=== PATIENT | female | born 1985 | race African-American/Black ===

== ENCOUNTER 2017-10-01 23:12 | Emergency (ER) | payer OTHER ==
[2017-10-01 23:32] VITALS: BP 117/71; PULSE 78; TEMP 98.1; BMI 29.0
--- NOTE | 2017-10-04 11:06 | EKG ---
Test Reason : Blood Pressure : / mmHG Vent. Rate : 072 BPM Atrial Rate : 072 BPM P-R Int : 166 ms QRS Dur : 086 ms QT Int : 364 ms P-R-T Axes : 034 024 014 degrees QTc Int : 398 ms NORMAL SINUS RHYTHM NORMAL ECG NO PREVIOUS ECGS AVAILABLE Confirmed by BRISA BRANTLEY, ABDIEL ([id number]) on 10/04/2017 11:06:25 AM Referred By: Confirmed By:ABDIEL LEDEZMA MD
== END 2017-10-02 01:22 | disposition left against medical advice (07) ==
LOC: JER 23:12
DX: Z53.21 Procedure and treatment not carried out due to patient leaving prior to being seen by health care provider (principal)
CPT/HCPCS: 93005; 93010; 99281-25

== ENCOUNTER 2024-01-02 16:41 | Emergency (ER) | payer OTHER ==
[2024-01-02 16:53] VITALS: BP 120/77; PULSE 81; RESP 20; TEMP 98.7; BMI 29.3
[2024-01-02] MEDS ORDERED: ACETAMINOPHEN INJECTION 100 ML IVPB ONE (18:00)
[2024-01-02] MEDS: ACETAMINOPHEN 1000 MG/100 ML BAG IVPB ONE (18:41)
[2024-01-02 19:01] LABS: BASO % 0.6 % (0-2.0); EOS % 0.7 % (0-4.5); HEMATOCRIT 33.5 % (32.4-45.2); HEMOGLOBIN 10.9 GM/dL (10.7-15.3); LYMPH % 28.4 % (8-40); MCH 24.5 pg (25.7-33.7); MCHC 32.5 g/dl (32.0-36.0); MEAN CELL VOLUME 75.4 fl (80-96); MEAN PLT VOLUME 8.3 fl (7.5-11.1); MONO % 6.4 % (3.8-10.2); NEUT % 63.9 % (42.8-82.8); PLATELET COUNT 319 10^3/uL (134-434); RBC 4.44 M/mm3 (3.60-5.2)
[2024-01-02 19:12] LABS: INR 1.04 (0.83-1.09); PROTHROMBIN TIME (PATIENT) 11.7 SEC (9.7-13.0)
[2024-01-02 19:15] LABS: ACTIVATED PTT 26.6 SECONDS (25.2-36.5)
[2024-01-02 19:26] LABS: CHLORIDE 106 mmol/L (98-107); SODIUM 134 mmol/L (136-145)
[2024-01-02 19:28] LABS: ALBUMIN 3.6 g/dl (3.4-5.0); CALCIUM 9.3 mg/dL (8.5-10.1)
[2024-01-02 19:29] LABS: CO2 25 mmol/L (21-32); GLUCOSE,RANDOM 79 mg/dL (74-106)
[2024-01-02 19:31] LABS: CREATININE 0.9 mg/dL (0.55-1.3)
[2024-01-02 19:32] LABS: SGOT/AST 70 U/L (15-37); SGPT/ALT 41 U/L (13-61)
[2024-01-02 19:33] LABS: TOT PROT 7.7 g/dl (6.4-8.2)
[2024-01-02 19:34] LABS: ALK PHOS 72 U/L (45-117)
[2024-01-02 20:25] LABS: ANION GAP 4 mmol/L (4-13); POTASSIUM 6.5 mmol/L (3.5-5.1)
[2024-01-02 20:38] LABS: BILIRUBIN,TOTAL 0.5 mg/dL (0.2-1)
[2024-01-02] MEDS ORDERED: KETOROLAC TROMETHAMINE 30 MG/1 ML VIAL ONE (22:21)
[2024-01-02] MEDS: KETOROLAC TROMETHAMINE 30 MG/1 ML VIAL IVPUSH ONE (22:33)
[2024-01-02 22:54] LABS: HCG,QUALITATIVE URINE Negative
[2024-01-02 23:12] LABS: URINE APPEARANCE CLEAR; URINE BILIRUBIN NEGATIVE (NEGATIVE); URINE COLOR YELLOW; URINE GLUCOSE (UA) NEGATIVE (NEGATIVE)
[2024-01-02 23:13] LABS: PH,URINE 5.5 (5.0-8.0); URINE KETONE NEGATIVE (NEGATIVE); URINE NITRITE NEGATIVE (NEGATIVE); URINE PROTEIN NEGATIVE (NEGATIVE); URINE UROBILINOGEN 0.2 mg/dL (0.2-1.0)
[2024-01-02 23:14] LABS: URINE LEUK ESTERASE NEGATIVE (NEGATIVE)
== END 2024-01-02 23:19 | disposition home or self-care (01) ==
LOC: JER 16:41
PROC: 3E030NZ Introduction of Analgesics, Hypnotics, Sedatives into Peripheral Vein, Open Approach (ICD-10-PCS; principal; 2024-01-02)
DX: R10.31 Right lower quadrant pain (principal); R10.32 Left lower quadrant pain; V73.5XXA Driver of bus injured in collision with car, pick-up truck or van in traffic accident, initial encounter
CPT/HCPCS: 36415; 71045-TC-FY; 72170-TC-FY; 74177-TC; 80053; 81003; 83605; 84132; 84703; 85025; 85610; 85730; 86850; 86870; 86880; 86900; 86901; 86902; 93005; 93010; 99285-25; J0131; Q9967